=== PATIENT | female | born 1975 | race Native Hawaiian/Other Pacific Islander ===

== ENCOUNTER 2017-02-17 21:35 | Emergency (ER) | payer BC ==
[~2017-02-17] VITALS: Ht 167.6 cm; Wt 127.0 kg
[2017-02-17] MEDS ORDERED: ZANTAC IJ (21:45)
[2017-02-17] MEDS ORDERED: BACTRIM1 TAB PO (21:46)
[2017-02-17 22:42] LABS: PLATELET COUNT 300 K/uL (152-353)
[2017-02-17 22:46] LABS: POTASSIUM 3.3 mmol/L (3.6-5.2)
[2017-02-18 00:06] VITALS: BP 153/93; TEMP 98.6
== END 2017-02-18 00:08 | disposition home or self-care (01) ==
LOC: ED 21:35
DX: T81.4XXA Infection following a procedure, initial encounter (principal); L03.311 Cellulitis of abdominal wall
CPT/HCPCS: 36415; 80053; 85027; 87040; 96365; 96375; 99284; J0696

== ENCOUNTER 2019-04-21 11:07 | Outpatient (CLI) | payer BC ==
[~2019-04-21 11:07] MED LIST: BACTRIM1 TAB PO; ZANTAC IJ
== END 2019-04-21 23:46 | disposition home or self-care (01) ==
LOC: MAMMO 11:07
DX: Z12.31 Encounter for screening mammogram for malignant neoplasm of breast (principal); Z41.1 Encounter for cosmetic surgery

== ENCOUNTER 2019-04-25 10:48 | Outpatient (CLI) | payer BC | END 2019-04-25 20:54 | disposition home or self-care (01) | LOC: MAMMO 10:48 | DX: R92.8 Other abnormal and inconclusive findings on diagnostic imaging of breast (principal) ==

== ENCOUNTER 2020-09-24 08:41 | Outpatient (CLI) | payer BC, OTHER | END 2020-09-24 21:41 | disposition home or self-care (01) | LOC: INF 08:41 | PROVIDERS: ATTEND Internal Medicine Endocrinology, Diabetes & Metabolism | DX: Z23 Encounter for immunization (principal) | CPT/HCPCS: 96372 ==

== ENCOUNTER 2020-10-22 08:06 | Outpatient (CLI) | payer BC, OTHER | END 2020-10-22 23:08 | disposition home or self-care (01) | LOC: INF 08:06 | PROVIDERS: ATTEND Internal Medicine Endocrinology, Diabetes & Metabolism | DX: Z23 Encounter for immunization (principal) | CPT/HCPCS: 96372 ==

== ENCOUNTER 2022-04-18 14:54 | Emergency (ER) | payer BC ==
[~2022-04-18] VITALS: Ht 165.1 cm; Wt 91.2 kg
[2022-04-18 15:01] VITALS: TEMP 97.4
[2022-04-18 15:23] LABS: PLATELET COUNT 220 K/uL (152-353)
[2022-04-18 15:29] LABS: POTASSIUM 4.2 mmol/L (3.6-5.2)
[2022-04-18 19:23] VITALS: BP 138/85
== END 2022-04-18 19:24 | disposition home or self-care (01) ==
LOC: ED 14:54
PROVIDERS: Emergency Medicine
DX: K52.89 Other specified noninfective gastroenteritis and colitis (principal); R10.31 Right lower quadrant pain
CPT/HCPCS: 36415; 80053; 81002; 81025; 82150; 83690; 85027; 96365; 96366; 96375; 99284; J1956; J2405; J3490; Q9963

== ENCOUNTER 2022-06-30 11:59 | Outpatient (CLI) | payer BC ==
[2022-06-30 12:40] LABS: PLATELET COUNT 233 K/uL (152-353)
[2022-06-30 13:08] LABS: POTASSIUM 4.3 mmol/L (3.6-5.2)
== END 2022-06-30 20:32 | disposition home or self-care (01) ==
LOC: LABW 11:59
PROVIDERS: ATTEND Nurse Practitioner Family
DX: R10.30 Lower abdominal pain, unspecified (principal)
CPT/HCPCS: 36415; 80053; 85027; Q9963

== ENCOUNTER 2022-07-27 12:50 | Outpatient (CLI) | payer BC | END 2022-07-27 20:02 | disposition home or self-care (01) | LOC: MAMMO 12:50 | PROVIDERS: ATTEND Nurse Practitioner Family | DX: Z12.31 Encounter for screening mammogram for malignant neoplasm of breast (principal) ==

== ENCOUNTER 2023-06-01 08:47 | Outpatient (CLI) | payer BC | END 2023-06-01 20:43 | disposition home or self-care (01) | LOC: CT 08:47 | PROVIDERS: ATTEND Nurse Practitioner | DX: K29.70 Gastritis, unspecified, without bleeding (principal); R10.11 Right upper quadrant pain; K52.9 Noninfective gastroenteritis and colitis, unspecified | CPT/HCPCS: Q9963 ==